=== PATIENT | male | born 1935 | race Caucasian/White ===

== ENCOUNTER 2022-03-29 03:31 | Emergency (ER) | payer MEDICARE, SELFPAY ==
--- NOTE | 2022-03-29 03:33 | ECG_ITS ---
Test Reason : CHEST PAIN Blood Pressure : / mmHG Vent. Rate : 072 BPM Atrial Rate : 072 BPM P-R Int : 184 ms QRS Dur : 080 ms QT Int : 406 ms P-R-T Axes : 044 -07 044 degrees QTc Int : 444 ms Normal sinus rhythm Normal ECG When compared with ECG of 06-NOV-2008 06:40, No significant change was found Referred By: Generic ED Physician Electronically Signed By:AURA NEWMAN MD
[2022-03-29 03:43] VITALS: BP 185/90; BP 187/94; PULSE 72; PULSE 74; RESP 12; TEMP 36.6; O2SAT 96; BMI 25.8
[2022-03-29 04:02] LABS: Mean Corpuscular HGB Conc 31.9 g/dl (31.0-36.0); Mean Corpuscular Hemoglobin 27.8 pg (27.0-33.0); Mean Platelet Volume 8.7 fL (9.4-12.4); Platelet Count 200 X10*3/uL (160-400); Red Cell Distribution Width 13.4 % (11.0-16.0); White Blood Count 5.4 X10*3/uL (4.8-10.8)
[2022-03-29 04:19] LABS: Alanine Aminotransferase 15 U/L (0-40); Albumin Level 3.9 g/dL (3.5-5.0); Alkaline Phosphatase 61 U/L (39-117); Anion Gap 11 (12-20); Aspartate Amino Transferase 18 U/L (5-37); Bilirubin Total 0.5 mg/dL (0.0-1.0); Blood Urea Nitrogen 20 mg/dL (9-16); Calcium 9.3 mg/dL (8.4-10.2); Carbon Dioxide 26 mmol/L (22-29); Chloride 105 mmol/L (96-108); Creatinine Clr Calc Pharmacy 46.2; Estimated Glomerular Filt Rate > 60; Glucose Random 116 mg/dL (60-115); Potassium 3.9 mmol/L (3.3-5.1); Sodium 138 mmol/L (135-145); Total Protein 6.7 g/dL (6.5-8.0)
[2022-03-29 04:23] LABS: Troponin-I High Sensitivity 5.7 ng/L (<3.5-35.0)
--- NOTE | 2022-03-29 04:43 | ED.CHESTPAIN ---
HPI - Chest Pain General Chief Complaint: Chest Pain Stated Complaint: Chest pain Time Seen by Provider: 03/29/22 04:33 Source: patient Mode of arrival: EMS Limitations: no limitations History of Present Illness HPI narrative: Patient comes to the emergency room complaining of chest pain that started around 2 in the morning and subsided after taking Zantac. Patient states that he ate pizza earlier today, ate more than usual. Also, patient is known to get abdominal discomfort with echeverria peppers. Patient's pizza was covered in echeverria peppers. When EMS arrived to the patient's residence, the symptoms had resolved. Patient has no cardiac history. At this time, patient is asymptomatic. Patient states that the Zantac tablet really helped him Related Data Previous Rx's Medication Instructions Recorded omeprazole 40 mg capsule,delayed 40 mg PO DAILY #20 caps 03/29/22 release Allergies Allergy/AdvReac Type Severity Reaction Status Date / Time No Known Allergies Allergy Mild NONE Unverified 11/28/19 16:11 Review of Systems Review of Systems: Constitutional : No Weight loss, No Fever, No Chills, No Night Sweats, No Fatigue, No Malaise ENT/Mouth : No Hearing loss, No Ear Pain, No Nasal Congestion, No Sinus Pain, No Hoarseness, No sore throat, No Rhinorrhea, No Swallowing Difficulty Eyes: No Eye Pain, No Swelling, No Redness, No Foreign Body, No Discharge, No Vision Changes Cardiovascular : Complaining of chest pressure earlier today that resolved after taking anti acid medication, No SOB, No Dyspnea on Exertion, No Orthopnea, No Edema, No Palpitations Respiratory : No Cough, No Sputum, No Wheezing, No Smoke Exposure, No Dyspnea Gastrointestinal : No Nausea, No Vomiting, No Diarrhea, No Constipation, No abdominal Pain, No Hematochezia, No Melena Genitourinary : no irregular bleeding, No Dysuria, No Urinary Frequency, No Hematuria, No Urinary Incontinence, No Urgency, No Flank Pain, No Urinary Flow Changes, No Hesitancy Musculoskeletal : No joint pain, No Myalgias, No Joint Swelling Skin : No Skin Lesions, No rash Neuro : No Weakness, No Numbness, No Paresthesias, No Loss of Consciousness, No Dizziness, No Headache Psych : No Anxiety/Panic, No Depression, No SI/HI/AH/VH, No Social Issues, Heme/Lymph: No Bruising, No Bleeding,No Lymphadenopathy Endocrine : No Polyuria, No Polydipsia, No Temperature Intolerance [facility] Social History Social History Advance Directives: No Physical Exam Vital Signs: Vital Signs: Last Vital Signs Temp 97.8 F 03/29/22 03:43 Pulse 74 03/29/22 03:43 Resp 12 03/29/22 03:43 BP 185/90 H 03/29/22 03:43 Pulse Ox 96 03/29/22 03:43 O2 Del Method 03/29/22 03:43 BMI result Body Mass Index 25.8 Const: Other: Appearance: Alert. Oriented X3. No acute distress. Eyes: Pupils equal, round and reactive to light. ENT: Pharynx normal. Neck: Normal inspection. Neck supple. No lymph nodes noted. No crepitus CVS: Normal heart rate and rhythm. Pulses normal. Normal S1 and S2 Respiratory: No respiratory distress. Breath sounds normal. No Wheezing. No rales Abdomen: Soft and nontender. No rigidity. No distention. Skin: Skin warm and dry. Normal skin color. Normal skin turgor. Extremities: No lower extremity edema. No Lacerations. No Rash Neuro: Oriented X 3. No motor deficit. No sensory deficit. Moving all extremities. No slurred speech. CN 2 through 12 grossly intact Psych: calm, cooperative, normal affect Course Course Course Narrative: -patient well-appearing, asymptomatic -troponin 1. An EKG within normal limits. -patient declining any dyspepsia medication, states that he has no symptoms at all -patient already received aspirin which was given at home by his family -I discussed with the patient that we will recheck troponin 3 hours from the original 1, which will be around 07:00 -Sign out given to Dr. Quiñones Medical Decision Making Differential Diagnosis Differential Diagnoses: The differential diagnosis associated with the presentation includes (GERD versus ACS) Lab Data MDM Lab Attestation statement: I reviewed the patient's lab results. 03/29/22 03:51 03/29/22 03:51 Labs: Lab Results 03/29/22 03/29/22 03/29/22 Range/Units 03:51 03:51 03:51 WBC 5.4 (4.8-10.8) X10*3/uL RBC 5.40 (4.60-5.80) X10*6/uL Hgb 15.0 (14.0-18.0) g/dl Hct 47.0 (42.0-52.0) % MCV 87.0 (80.0-98.0) fL MCH 27.8 (27.0-33.0) pg MCHC 31.9 (31.0-36.0) g/dl RDW 13.4 (11.0-16.0) % Plt Count 200 (160-400) X10*3/uL MPV 8.7 L (9.4-12.4) fL Absolute Nucleated RBC 0.000 (0.0-0.012) X10*3/uL Nucleated RBC % (auto) 0.0 (0.0-0.2) /100WBC Sodium 138 (135-145) mmol/L Potassium 3.9 (3.3-5.1) mmol/L Chloride 105 (96-108) mmol/L Carbon Dioxide 26 (22-29) mmol/L Anion Gap 11 L (12-20) BUN 20 H (9-16) mg/dL Creatinine 1.13 (0.5-1.4) mg/dL Estim Creat Clear Calc 46.2 Estimated GFR > 60 Random Glucose 116 H (60-115) mg/dL Calcium 9.3 (8.4-10.2) mg/dL Total Bilirubin 0.5 (0.0-1.0) mg/dL AST 18 (5-37) U/L ALT 15 (0-40) U/L Alkaline Phosphatase 61 (39-117) U/L Troponin I High Sens 5.7 (<3.5-35.0) ng/L Total Protein 6.7 (6.5-8.0) g/dL Albumin 3.9 (3.5-5.0) g/dL Independent Interpretation I performed an independent interpretation of an: EKG (My interpretation of EKG: Normal sinus rhythm, heart rate 72, no ST segment depression or elevation, active inversion, QTC 444) Discharge Plan Discharge Clinical Impression: Atypical chest pain Patient Disposition: Still a Patient Instructions: Chest Pain (ED), Diet for Stomach Ulcers and Gastritis (ED), Gastroesophageal Reflux Disease (ED) Additional Instructions: Please follow-up with your primary care physician tomorrow. If you have any worsening or new symptoms, please return to the emergency room or call 911 Prescriptions: New omeprazole 40 mg capsule,delayed release(DR/EC) 40 mg PO DAILY Qty: 20 0RF
[2022-03-29 04:49] VITALS: BP 136/88; PULSE 70; RESP 14; TEMP 36.6; O2SAT 93
[2022-03-29 05:36] LABS: Troponin-I High Sensitivity 5.8 ng/L (<3.5-35.0)
--- NOTE | 2022-03-29 05:58 | PC.NURSE ---
Pt. reported that symptoms had pretty much resolved by the time EMS was with him. Pt. has been resting in bed watching tv with since arrival. Pt. reports no pain at this time. Pt. pending repeat trop and then anticipating d/c to home.
[2022-03-29 06:10] VITALS: BP 137/81; PULSE 65; RESP 15; TEMP 36.6; O2SAT 96
[2022-03-29 07:12] VITALS: BP 149/89; PULSE 70; RESP 14; TEMP 36.7; O2SAT 95
[2022-03-29 07:23] VITALS: BP 145/79; PULSE 68; RESP 18; TEMP 36.9; O2SAT 97
--- NOTE | 2022-03-29 07:25 | PC.NURSE ---
patient a/ox4 . VSS . went over discharge instructions as ordered by provider . went over discharge instructions as ordered buy provider . patient to follow up with primary care . patient to return to ED if symptoms worsen . no questions at this time .
== END 2022-03-29 07:27 | disposition home or self-care (01) ==
PROVIDERS: Emergency Medicine; Emergency Provider Emergency Medicine
DX: R07.89 Other chest pain (principal); Z79.899 Other long term (current) drug therapy
CPT/HCPCS: 36415; 80053; 84484; 85027; 93005; 99283; 99285

== ENCOUNTER 2023-03-27 12:55 | Outpatient (AMB) | payer MEDICARE, OTHER, SELFPAY ==
--- NOTE | 2023-03-27 09:03 | AM.OFFVISNUR ---
Intake Intake Visit Reasons: NPV-medication Allergies No Known Allergies Allergy (Mild, Unverified 11/28/19 16:11) NONE Office Procedures Flu Questionnaire Does the patient have a severe egg allergy?: No Does the patient have severe life threatening allergies?: No Does the patient have a fever or illness today?: No Has the patient ever had Guillain-[place] Syndrome?: No Has the patient ever had any past reaction to a flu shot?: No Immunizations flu vacc [id number] 6mos up(PF) 60 mcg(15 mcgx4)/0.5 mL IM syringe Performing Provider: Alfonzo Vivar MD Performing Location: [facility] Administered by: DEDE Maynard on 03/27/23 09:04 Dose Route Admin Location Dispensed Lot Number Expiration Date NDC Metal Melter 0.5 mL IM Left Deltoid 0.5 mL [id number] 09/10/23 17323-840-79 [facility] V[facility] Given Date VIS Provided VIS Publication Date 03/27/23 Single Vaccine 20 Eligibility Eligibility Date Funding Source Not [facility] Eligible 03/27/23 Private Coding Assessment & Plan Assessment & Plan Orders: Orders Influenza [id number] Immunization Today Z23 - Encounter for immunization
--- NOTE | 2023-03-27 13:03 | A.OFFPC_ITS ---
Vital Signs 03/27/23 13:05 Height 5 ft 6 in Weight 176 lb 4 oz BMI 28.4 BP 132/80 Blood Pressure Location Lt brachial Position Sitting Pulse 82 Pulse Source Pulse Oximeter Pulse Oximetry (%) 98 Oxygen Delivery Method Room Air Intake Visit Reasons: NPV-medication Intake Note: Patient is a new patient here to establish care for physical. Transferring care from Dr Lu Mayers. Medical records have been requested and have not received. Retail Customer Service Specialist Required: No Director Summer Sessions: Present Accompanied by: Spouse Allergies No Known Allergies Allergy (Mild, Verified 03/27/23 13:25) NONE Medication List - Last Reconciled 03/27/23 by Alfonzo Vivar MD No Known Home Meds Tobacco use date assessed: 03/27/23 Fall risk assessment: No Falls in past year Last assessed Fall Risk: 03/27/23 Dental Screening Dental Screen Date: 03/27/23 Did you have a dental visit in the last 12 months?: No Did you have a dental problem in the last 6 months where you did not have access to dental care?: No Was dental information given to patient?: Patient has dentist HPI NPV-medication HPI Details 88-year-old male presents to the office to establish his care. He is requesting a physical. Has not seen a primary care in many years. Fortunately he is in good health and is not on any medications. [facility] Medical History Hx of nephrolithotomy with removal of calculi Surgical History History of hernia surgery Social History Housing: House Alcohol intake: current Alcohol intake frequency: holidays/special occasions only Patient Tobacco Use Status: Former Tobacco user e-Cigarette/Vaping Use: Never Used Second Hand Smoke Exposure: Yes service: Yes Current occupational status: retired Cognitive needs: No Hearing needs: Yes (Hearing aide) Vision needs: Yes (Glasses) Questionnaire PHQ-9 Over the last 2 weeks, how often have you been bothered by any of the following problems? 1. Little interest or pleasure in doing things: not at all 2. Feeling down, depressed, or hopeless: not at all 3. Trouble falling or staying asleep, or sleeping too much: not at all 4. Feeling tired or having little energy: not at all 5. Poor appetite or overeating: not at all 6. Feeling bad about yourself - or that you are a failure or have let yourself or your family down: not at all 7. Trouble concentrating on things, such as reading the newspaper or watching television: not at all 8. Moving or speaking so slowly that other people could have noticed. Or the opposite - being so fidgety or restless that you have been moving around a lot more than usual: not at all 9. Thoughts that you would be better off or of hurting yourself in some way: not at all Total score: 0 Depression Screening Interpretation: Negative Depression Screening Done: Yes Source: Developed by Drs. Andrés Peter, Lisa Franks, Tucker Tejeda and colleagues, with an educational alpa from [employer]. Thrive Questionnaire Date Thrive assessed: 03/27/23 I am a: Patient What is your living situation today?: I have a steady place to live Within the past 12 months, did the food you bought not last and you didn't have the money to get more?: Never true Within the past 12 months, did you worry whether your food would run out before you got money to buy more?: Never true Do you have trouble paying for medicines?: No Do you have trouble getting transportation to medical appointments?: No Do you have trouble paying your heating and electricity bill?: No Do you have trouble taking care of your child, family member or friend?: No Do you have trouble with day-to-day activities such as bathing, preparing meals, shopping, managing finances, etc.?: No Are you currently unemployed and looking for a job?: No Are you interested in more education?: No Currently or been in a relationship where the following occur: no concerns reported AUDIT C Alcohol Use Questionnaire (AUDIT-C) 1. How often do you have a drink containing alcohol?: Monthly or less Total Score: 1 MINESH-7 AMB Questionnaire MINESH-7 Date MINESH - 7 assessed: 03/27/23 Feeling nervous, anxious, or on edge: 0 = Not at all Not being able to stop or control worryin = Not at all Worrying too much about different things: 0 = Not at all Trouble relaxin = Not at all Being so restless that it is hard to sit still: 0 = Not at all Becoming easily annoyed or irritable: 0 = Not at all Feeling afraid as if something awful might happen: 0 = Not at all Total MINESH-7 score (0-4 normal; 5-9 mild; 10-14 moderate; 15-21 severe): 0 Source: Developed by Drs. Andrés Peter, Lisa Franks, Tucker Tejeda and colleagues, with an educational alpa from [employer]. Physical exam (Primary Care) Vital Signs: Last Vital Signs Pulse 82 03/27/23 13:05 BP 132/80 03/27/23 13:05 Pulse Ox 98 03/27/23 13:05 Oxygen Delivery Method Room Air 03/27/23 13:05 Care Plan Goal for BP management: Blood pressure is in range. No medications needed. BMI result Body Mass Index 28.4 Tobacco/Smoking Status: Tobacco use Status Tobacco use date assessed 03/27/23 03/27/23 13:15 Patient Tobacco Use Status Former Tobacco user 03/27/23 13:15 e-Cigarette/Vaping Use Never Used 03/27/23 13:15 PHQ-9: PHQ-9 Score PHQ-9: Total score 0 03/27/23 13:15 Depression Screening Interpretation: Negative Thrive Assessment: Date of Thrive Assessment Date Thrive assessed 03/27/23 03/27/23 13:15 Currently or been in a relationship where the following occur: no concerns reported Advance Care Planning discussion: Exists, not on file Date of discussion: 03/27/23 Who was present: Patient, spouse Forms completed: Health Care Proxy Time spent: 1-15 minutes, not on file Actual minutes spent: 5 Const General: cooperative and healthy appearing Nutritional Appearance: well nourished Orientation/consciousness: patient oriented x3 Limitations: no limitations HENMT Head: Yes normal to inspection Eyes General: appearance normal, both eyes and all related structures Neck Neck: Yes normal visual inspection Chest Chest palpation & inspection: normal palpation of entire chest wall Resp Effort & Inspection: normal respiratory effort Neuro General: patient oriented x3 Office Procedures Flu Questionnaire Does the patient have a severe egg allergy?: No Does the patient have severe life threatening allergies?: No Does the patient have a fever or illness today?: No Has the patient ever had Guillain-Mcd[place] Syndrome?: No Has the patient ever had any past reaction to a flu shot?: No Immunizations flu vacc [id number] 6mos up(PF) 60 mcg(15 mcgx4)/0.5 mL IM syringe Performing Provider: Alfonzo Vivar MD [facility] Administered by: DEDE Maynard on 03/27/23 09:04 Dose Route Admin Location Dispensed Lot Number Expiration Date NDC Wood Crafter 0.5 mL IM Left Deltoid 0.5 mL [id number] 09/10/23 13628-658-60 CS[employer] VIS Given Date VIS Provided VIS Publication Date 03/27/23 Single Vaccine 20 Eligibility Eligibility Date Funding Source Not [facility] Eligible 03/27/23 Private Assessment and Plan Assessment & Plan (1) Annual physical exam: Code(s): Z00.00 - Encounter for general adult medical examination without abnormal findings Plan: Patient appears in good health. Blood work has been ordered. Will call with results. Orders: Orders Influenza [id number] Immunization Today Z23 - Encounter for immunization Coding Level of Care Code New Pt Prev Care >65yr (68853) Diagnoses Annual physical exam Z00.00 Additional Codes Vital Signs *Quality* - Advance Care Planning discussion: Exists, not on file ([id number]) Vital Signs *Quality* - Time spent: 1-15 minutes, not on file ([id number])
[2023-03-27 13:05] VITALS: BP 132/80; PULSE 82; O2SAT 98; BMI 28.4
== END 2023-03-27 13:33 | disposition home or self-care (01) ==
PROVIDERS: PCP Internal Medicine; Visit Provider Internal Medicine
DX: Z00.00 Encounter for general adult medical examination without abnormal findings (principal); Z23 Encounter for immunization
CPT/HCPCS: 1124F; 90471; 90686; 99387

== ENCOUNTER 2023-03-27 13:39 | Outpatient (REF) | payer MEDICARE, OTHER, SELFPAY ==
[2023-03-27 14:46] LABS: Hematocrit 47.7 % (42.0-52.0); Hemoglobin 15.3 g/dl (14.0-18.0); Mean Corpuscular HGB Conc 32.1 g/dl (31.0-36.0); Mean Corpuscular Hemoglobin 28.5 pg (27.0-33.0); Mean Platelet Volume 9.9 fL (9.4-12.4); Platelet Count 215 X10*3/uL (160-400); Red Blood Count 5.36 X10*6/uL (4.60-5.80); Red Cell Distribution Width 13.5 % (11.0-16.0); White Blood Count 6.3 X10*3/uL (4.8-10.8)
[2023-03-27 15:15] LABS: Appearance Urine Clear; Color Urine Yellow; Glucose Urine UA 100 mg/dL (Negative); Leukocyte Esterase Urine Negative (Negative); Nitrite Urine Negative (Negative); PH 5.5 (5.0-9.0); Urine Blood Negative (Negative); Urine Ketones Negative (Negative); Urine Protein Negative (Neg-Trace)
[2023-03-27 15:26] LABS: Alanine Aminotransferase 15 U/L (0-40); Albumin Level 4.1 g/dL (3.5-5.0); Alkaline Phosphatase 62 U/L (39-117); Anion Gap 10 (12-20); Aspartate Amino Transferase 27 U/L (5-37); Bilirubin Direct 0.1 mg/dL (0.0-0.5); Bilirubin Total 0.3 mg/dL (0.0-1.0); Blood Urea Nitrogen 16 mg/dL (9-16); Calcium 9.7 mg/dL (8.4-10.2); Carbon Dioxide 28 mmol/L (22-29); Chloride 105 mmol/L (96-108); Cholesterol 190 mg/dL (<200); Estimated Glomerular Filt Rate > 60; Glucose Random 73 mg/dL (60-115); HDL Cholesterol 41 mg/dL (>40); LDL Cholesterol Calculated 105 mg/dL (<100); Potassium 4.1 mmol/L (3.3-5.1); Sodium 139 mmol/L (135-145); Total Protein 7.5 g/dL (6.5-8.0); Triglycerides 224 mg/dL (<150)
[2023-03-27 15:40] LABS: Thyroid Stimulating Hormone 0.82 uIU/mL (0.32-4.0)
== END 2023-03-27 13:40 | disposition home or self-care (01) ==
LOC: HO.LAB 13:39
PROVIDERS: PCP Internal Medicine; Visit Provider Internal Medicine
DX: Z00.00 Encounter for general adult medical examination without abnormal findings (principal); Z13.220 Encounter for screening for lipoid disorders; Z12.5 Encounter for screening for malignant neoplasm of prostate; Z13.29 Encounter for screening for other suspected endocrine disorder; Z13.9 Encounter for screening, unspecified
CPT/HCPCS: 36415; 80048; 80061; 80076; 81003; 84153; 84443; 85027

== ENCOUNTER 2023-03-29 10:03 | Outpatient (REF) | payer MEDICARE, OTHER, SELFPAY ==
--- NOTE | ~2023-03-29 | XR_ITS ---
EXAMINATION: XR CHEST CLINICAL INFORMATION: Reason for Exam R05.9 - Cough, unspecified COMPARISON: Chest radiograph 11/05/2008 TECHNIQUE: 2 views of the chest FINDINGS: Lines and tubes: None. Clear lungs. No pleural effusion. No pneumothorax. Ectatic thoracic aorta. Normal cardiac silhouette. XR/XR chest 2V IMPRESSION: 1. Clear lungs. 2. Ectatic thoracic aorta.
== END 2023-03-29 10:04 | disposition home or self-care (01) ==
LOC: HO.XRAY 10:03
PROVIDERS: PCP Internal Medicine; Visit Provider Internal Medicine
DX: R05.9 Cough, unspecified (principal)
CPT/HCPCS: 71046

== ENCOUNTER 2023-07-13 09:54 | Outpatient (AMB) | payer MEDICARE, OTHER, SELFPAY ==
--- NOTE | 2023-07-13 10:06 | A.OFFPC_ITS ---
Vital Signs 07/13/23 10:07 Height 5 ft 6 in Weight 175 lb BMI 28.2 BP 110/68 Blood Pressure Location Lt brachial Position Sitting Pulse 92 Pulse Source Pulse Oximeter Pulse Oximetry (%) 95 Oxygen Delivery Method Room Air Intake Visit Reasons: 3mth f/u Intake Note: Patient is here to follow up on health issues. Android Programmer Required: No Marble Setter: Present Accompanied by: Spouse Allergies No Known Allergies Allergy (Mild, Verified 07/13/23 13:17) NONE Medication List - Last Reconciled 07/13/23 by Alfonzo Vivar MD No Known Home Meds Tobacco use date assessed: 07/13/23 Fall risk assessment: No Falls in past year Last assessed Fall Risk: 07/13/23 Dental Screening Dental Screen Date: 03/27/23 HPI 3mth f/u HPI Details 88-year-old male presents to the office to discuss his chronic medical conditions. Since last office visit, his cough symptoms have subsided. Patient had a chest x-ray which was unremarkable. Able to function and do all activities of daily living. Patient is able to drive and do his own personal finances. No recent falls. [facility] Medical History Hx of nephrolithotomy with removal of calculi Surgical History History of hernia surgery Social History Housing: House Alcohol intake: current Alcohol intake frequency: holidays/special occasions only Patient Tobacco Use Status: Former Tobacco user e-Cigarette/Vaping Use: Never Used Second Hand Smoke Exposure: Yes service: Yes Current occupational status: retired Cognitive needs: No Hearing needs: Yes (Hearing aide) Vision needs: Yes (Glasses) Questionnaire Thrive Questionnaire Date Thrive assessed: 03/27/23 MINESH-7 AMB Questionnaire MINESH-7 Date MINESH - 7 assessed: 03/27/23 Source: Developed by Drs. Andrés Peter, Lisa Franks, Tucker Tejeda and colleagues, with an educational alpa from [employer]. Physical exam (Primary Care) Vital Signs: Last Vital Signs Pulse 92 07/13/23 10:07 BP 110/68 07/13/23 10:07 Pulse Ox 95 07/13/23 10:07 Oxygen Delivery Method Room Air 07/13/23 10:07 BMI result Body Mass Index 28.2 Tobacco/Smoking Status: Tobacco use Status Tobacco use date assessed 07/13/23 07/13/23 10:10 Patient Tobacco Use Status Former Tobacco user 07/13/23 10:10 e-Cigarette/Vaping Use Never Used 07/13/23 10:10 Thrive Assessment: Date of Thrive Assessment Date Thrive assessed 03/27/23 07/13/23 10:10 Const General: cooperative and healthy appearing Nutritional Appearance: well nourished Orientation/consciousness: patient oriented x3 Limitations: no limitations HENMT Head: Yes normal to inspection Eyes General: appearance normal, both eyes and all related structures Neck Neck: Yes normal visual inspection Chest Chest palpation & inspection: normal palpation of entire chest wall Resp Effort & Inspection: normal respiratory effort Neuro General: patient oriented x3 Assessment and Plan Assessment & Plan (1) Cough: Code(s): R05.9 - Cough, unspecified Plan: Symptoms have completely resolved. No further treatment needed. Patient was reassured. Blood work from the last office visit was reviewed again. Coding Level of Care Code Est Pt Level 3 (67683) Diagnoses Cough R05.9
[2023-07-13 10:07] VITALS: BP 110/68; PULSE 92; O2SAT 95; BMI 28.2
== END 2023-07-13 10:59 | disposition home or self-care (01) ==
PROVIDERS: PCP Internal Medicine; Visit Provider Internal Medicine
DX: R05.9 Cough, unspecified (principal)
CPT/HCPCS: 99213